=== PATIENT | male | born 1980 | race Caucasian/White ===

== ENCOUNTER 2017-01-13 20:06 | Emergency (ER) | payer SELFPAY ==
[~2017-01-13] VITALS: Ht 180.3 cm; Wt 72.7 kg
[2017-01-13 20:15] VITALS: TEMP 98.3
[2017-01-13] MEDS ORDERED: PROTONIX 40MG T40 MG PO (21:43)
[2017-01-13 21:55] VITALS: BP 130/82; PULSE 76
== END 2017-01-13 21:57 | disposition home or self-care (01) ==
LOC: COL.ER 20:06
DX: T18.128A Food in esophagus causing other injury, initial encounter (principal)
CPT/HCPCS: J1610; J2060; J2405; J7030

== ENCOUNTER 2018-08-06 11:44 | Emergency (ER) | payer SELFPAY ==
[~2018-08-06] VITALS: Ht 177.8 cm; Wt 75.2 kg
[~2018-08-06 11:44] MED LIST: PROTONIX 40MG T40 MG PO
[2018-08-06 11:51] VITALS: TEMP 98.1
[2018-08-06] MEDS ORDERED: ZITHROMAX Z PA250 MG PO (12:15)
[2018-08-06] MEDS ORDERED: PROAIR HFA0.09 MG/AC IH (12:15)
[2018-08-06] MEDS ORDERED: PREDNISONE20 MG PO (12:15)
[2018-08-06 13:04] VITALS: BP 129/87; PULSE 86
== END 2018-08-06 13:05 | disposition home or self-care (01) ==
LOC: COL.ER 11:44
DX: J20.9 Acute bronchitis, unspecified (principal); J45.909 Unspecified asthma, uncomplicated

== ENCOUNTER 2018-09-08 01:47 | Observation (INO) | payer SELFPAY ==
[~2018-09-08] VITALS: Ht 177.8 cm; Wt 85.0 kg
[~2018-09-08 01:47] MED LIST changes: +PREDNISONE20 MG PO; +PROAIR HFA0.09 MG/AC IH; +ZITHROMAX Z PA250 MG PO
[2018-09-08 02:01] LABS: BASO # 0.1 (0.0-0.2); BASO % 0.4 % (0.0-2.0); EOS # 0.2 (0.0-0.7); EOS % 2.1 % (0-4.0); GRAN % 87.7 % (42.2-75.2); HEMATOCRIT 52.3 % (42.0-52.0); HEMOGLOBIN 17.1 g/dl (13.5-18.0); LYMPH # 0.3 (1.2-3.4); LYMPH % 2.9 % (20.0-51.0); MEAN CELL VOLUME 88 fl (80.0-100.0); MEAN CORPUSCULAR HEMOGLOBIN 29 pg (27.0-31.0); MEAN CORPUSCULAR HGB CONC 33 g/dl (33.0-37.0); MEAN PLATELET VOLUME 10.1 fl (7.4-10.4); MONO # 0.7 (0.1-0.6); MONO % 6.5 % (1.7-9.3); PLATELET COUNT 235 K/mm3 (130-400); RED BLOOD COUNT 5.97 M/mm3 (4.20-5.60)
[2018-09-08 02:11] LABS: ALBUMIN 4.5 gm/dL (3.5-5.0); BILIRUBIN,TOTAL 1.9 mg/dL (0.0-1.0); CALCIUM 9.8 mg/dL (8.4-10.2); CREATININE, serum 0.9 mg/dL (0.66-1.25); POTASSIUM 4.2 mmol/L (3.4-5.0)
[2018-09-08 03:22] LABS: MUCOUS Present /lpf; PH 5 (5-8); SQUAMOUS EPITHELIAL None Seen /hpf; URINE APPEARANCE Clear; URINE BACTERIA None Seen /hpf; URINE BILIRUBIN Negative (NEGATIVE); URINE BLOOD 2+ (NEGATIVE); URINE COLOR Yellow; URINE GLUCOSE Negative (NEGATIVE); URINE KETONE Negative (NEGATIVE); URINE LEUKOCYTE ESTERASE Negative (NEGATIVE); URINE NITRATE Negative (NEGATIVE); URINE PROTEIN(semi-quant) Negative (NEGATIVE); URINE WBC 0-2 /hpf
[2018-09-08 03:34] LABS: COLLECTION METHOD CLEAN CATCH
[2018-09-08] MEDS ORDERED: ZOFRAN 4MG T4 MG/TAB PO (06:55)
[2018-09-08 11:53] VITALS: BP 102/61; PULSE 88; TEMP 100
[2018-09-08 16:07] VITALS: BP 94/54; PULSE 82; TEMP 99.8
[2018-09-08 21:09] VITALS: BP 105/68; PULSE 84; TEMP 98.4
[2018-09-08 23:30] VITALS: BP 106/71; PULSE 97; TEMP 99.6
[2018-09-09 03:07] VITALS: BP 103/67; PULSE 77; TEMP 96
[2018-09-09 06:44] LABS: HEMATOCRIT 44.3 % (42.0-52.0); MEAN CELL VOLUME 88 fl (80.0-100.0); MEAN CORPUSCULAR HEMOGLOBIN 29 pg (27.0-31.0); MEAN CORPUSCULAR HGB CONC 33 g/dl (33.0-37.0); PLATELET COUNT 186 K/mm3 (130-400); RED BLOOD COUNT 5.03 M/mm3 (4.20-5.60); REDCELL DISTRIBUTION WIDTH-CV 13.2 % (11.5-14.5)
[2018-09-09 06:52] LABS: HEMOGLOBIN 14.5 g/dl (13.5-18.0)
[2018-09-09 06:58] LABS: CALCIUM 8.7 mg/dL (8.4-10.2); CREATININE, serum 0.92 mg/dL (0.66-1.25)
[2018-09-09 07:42] VITALS: BP 100/66; PULSE 77; TEMP 98.4
[2018-09-09 12:31] VITALS: BP 99/63; PULSE 82; TEMP 98.1
== END 2018-09-09 12:45 | disposition home or self-care (01) ==
LOC: COL.ER 01:47 → SURG 09:56 → MEDICAL 09-09 07:10 → SURG 09-09 12:45
PROVIDERS: Emergency Medicine; Surgery
DX: K52.9 Noninfective gastroenteritis and colitis, unspecified (principal); K56.609 Unspecified intestinal obstruction, unspecified as to partial versus complete obstruction; K57.30 Diverticulosis of large intestine without perforation or abscess without bleeding
CPT/HCPCS: G0378; J0500; J1170; J1885; J2270; J2405; J2550; J7030; J7120; Q9967

== ENCOUNTER → 2018-10-11 | Outpatient (CLI) | payer SELFPAY ==
[~2018-10-11] MED LIST changes: +ZOFRAN 4MG T4 MG/TAB PO
[2018-10-11 11:14] LABS: HEMATOCRIT 54.4 % (42.0-52.0); HEMOGLOBIN 17.6 g/dl (13.5-18.0); MEAN CELL VOLUME 87 fl (80.0-100.0); MEAN CORPUSCULAR HEMOGLOBIN 28 pg (27.0-31.0); MEAN CORPUSCULAR HGB CONC 32 g/dl (33.0-37.0); PLATELET COUNT 251 K/mm3 (130-400); RED BLOOD COUNT 6.27 M/mm3 (4.20-5.60); REDCELL DISTRIBUTION WIDTH-CV 13.2 % (11.5-14.5)
[2018-10-11 11:21] LABS: ALBUMIN 4.8 gm/dL (3.5-5.0); BILIRUBIN,TOTAL 1.2 mg/dL (0.0-1.0); C-REACTIVE PROTEIN 1.2 mg/dL (0.0-0.9); CALCIUM 9.9 mg/dL (8.4-10.2); CREATININE, serum 1.19 mg/dL (0.66-1.25); POTASSIUM 4.6 mmol/L (3.4-5.0); TOTAL PROTEIN 8.6 gm/dL (6.4-8.2)
[2018-10-11 11:25] LABS: PRE ALBUMIN 25.2 mg/dL (17.6-36.0)
== END ==
LOC: COL.LAB 10:36
PROVIDERS: Surgery
DX: R10.84 Generalized abdominal pain (principal); R19.7 Diarrhea, unspecified; R63.4 Abnormal weight loss

== ENCOUNTER 2019-04-29 22:47 | Emergency (ER) | payer SELFPAY ==
[~2019-04-29] VITALS: Ht 177.8 cm; Wt 79.5 kg
[2019-04-29 22:51] VITALS: BP 126/79; TEMP 98.2
[2019-04-29 23:39] LABS: COLLECTION METHOD CLEAN CATCH
[2019-04-29 23:45] LABS: PH 6 (5-8); SQUAMOUS EPITHELIAL None Seen /hpf; URINE APPEARANCE Clear; URINE BACTERIA None Seen /hpf; URINE BILIRUBIN Negative (NEGATIVE); URINE BLOOD 1+ (NEGATIVE); URINE COLOR Straw; URINE GLUCOSE Negative (NEGATIVE); URINE KETONE Negative (NEGATIVE); URINE LEUKOCYTE ESTERASE Negative (NEGATIVE); URINE NITRATE Negative (NEGATIVE); URINE PROTEIN(semi-quant) Negative (NEGATIVE); URINE RBC 0-2 /hpf; URINE UROBILINOGEN Negative (NEGATIVE)
[2019-04-29 23:55] LABS: TRICYCLIC ANTIDEPRESS URINE NEGATIVE
[2019-04-29 23:58] LABS: BASO # 0.1 (0.0-0.2); BASO % 1.5 % (0.0-2.0); EOS # 0.2 (0.0-0.7); EOS % 3.1 % (0-4.0); GRAN # 4.8 (1.4-6.5); GRAN % 63.6 % (42.2-75.2); HEMATOCRIT 43.4 % (42.0-52.0); HEMOGLOBIN 14.4 g/dl (13.5-18.0); LYMPH # 1.9 (1.2-3.4); LYMPH % 25.5 % (20.0-51.0); MEAN CELL VOLUME 86 fl (80.0-100.0); MEAN CORPUSCULAR HEMOGLOBIN 29 pg (27.0-31.0); MEAN CORPUSCULAR HGB CONC 33 g/dl (33.0-37.0); MEAN PLATELET VOLUME 10.3 fl (7.4-10.4); MONO # 0.5 (0.1-0.6); PLATELET COUNT 286 K/mm3 (130-400); RED BLOOD COUNT 5.05 M/mm3 (4.20-5.60); REDCELL DISTRIBUTION WIDTH-CV 13.1 % (11.5-14.5)
[2019-04-30 00:12] LABS: ALANINE AMINOTRANSFERASE 8 U/L (21-72); ALBUMIN 4.3 gm/dL (3.5-5.0); ALKALINE PHOSPHATASE 80 U/L (50-136); ANION GAP 11 mmol/L (7-16); AST,SGOT 23 U/L (15-37); BILIRUBIN,TOTAL 0.8 mg/dL (0.0-1.0); BLOOD UREA NITROGEN 11 mg/dL (9-20); CALCIUM 9.5 mg/dL (8.4-10.2); CARBON DIOXIDE 25 mmol/L (22-30); CHLORIDE 104 mmol/L (98-107); GLUCOSE 90 mg/dL (74-106); POTASSIUM 3.7 mmol/L (3.4-5.0); SODIUM 140 mmol/L (137-145); TOTAL PROTEIN 7.5 gm/dL (6.4-8.2)
[2019-04-30 00:13] LABS: ACETAMINOPHEN < 10 ug/mL (10-30); ALCOHOL(ethanol),MEDICAL < 10 mg/dL; SALICYLATE < 1.0 mg/dL
[2019-04-30 03:00] VITALS: PULSE 94
== END 2019-04-30 03:00 | disposition home or self-care (01) ==
LOC: COL.ER 22:47
PROVIDERS: Nurse Practitioner
DX: R45.851 Suicidal ideations (principal); J45.909 Unspecified asthma, uncomplicated; F17.220 Nicotine dependence, chewing tobacco, uncomplicated; F32.9 Major depressive disorder, single episode, unspecified; F41.9 Anxiety disorder, unspecified; Z90.89 Acquired absence of other organs